=== PATIENT | male | born 1965 | race Caucasian/White ===

== ENCOUNTER 2018-04-25 08:43 | Emergency (ER) | payer MEDICARE, MEDICAID ==
[~2018-04-25 08:43] MED LIST: ALBU8HFA PO; PALI156D IM
== END 2018-04-25 10:09 | disposition left against medical advice (07) ==
LOC: ER 08:45
DX: J00 Acute nasopharyngitis [common cold] (principal); Z53.21 Procedure and treatment not carried out due to patient leaving prior to being seen by health care provider

== ENCOUNTER 2018-08-07 04:37 | Emergency (ER) | payer MEDICARE, MEDICAID ==
[~2018-08-07] VITALS: Ht 182.9 cm; Wt 78.0 kg
[2018-08-07 04:42] VITALS: BP 120/69
[2018-08-07] MEDS ORDERED: naproxen 500mg tablet PO ONE (05:35)
== END 2018-08-07 05:41 | disposition home or self-care (01) ==
LOC: ER 04:37
DX: J02.9 Acute pharyngitis, unspecified (principal); Z90.49 Acquired absence of other specified parts of digestive tract; Z60.2 Problems related to living alone; Z59.0 Homelessness; Z56.0 Unemployment, unspecified; Z79.899 Other long term (current) drug therapy
CPT/HCPCS: 99282